=== PATIENT | female | born 1970 ===

== ENCOUNTER 2025-02-03 19:16 | Inpatient (IN) | payer OTHER ==
[~2025-02-03] VITALS: Wt 62.6 kg
[2025-02-03] MEDS ORDERED: LORazepam 2 MG/ML 1ML Injection IM ONE (20:45)
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
--- NOTE | 2025-02-04 04:23 | NUR ---
SHIFT SUMMARY: PLEASE SEE ADMISSION NOTE. ONCE PATIENT WENT TO BED, SHE WAS NOTED TO BE RESTING QUIETLY WITH EYES CLOSED AND RESPIRATIONS CONFIRMED FOR THE REMAINDER OF THE SHIFT. CONTINUING TO MONITOR FOR SAFETY WITH Q15 MINUTE CHECKS.
[2025-02-04] MEDS ORDERED: DiphenhydrAMINE HCl 50 MG/ML 1ML Vial IM PRN (07:55)
[2025-02-04] MEDS ORDERED: Haloperidol Lactate Inj. 5 MG/ML Injection IM PRN (07:55)
[2025-02-04] MEDS ORDERED: LORazepam 2 MG/ML 1ML Injection IM PRN (07:55)
[2025-02-04] MEDS ORDERED: Polyethylene Glycol 3350 17 gm PO PRN (08:00)
[2025-02-04] MEDS ORDERED: Ondansetron 4 MG SoluTab MM PRN (08:00)
[2025-02-04] MEDS ORDERED: Aluminum Hydroxide 320MG/5ML 473 ML PO PRN (08:05)
[2025-02-04] MEDS ORDERED: Multivitamins 1 Tab PO SCH (09:00)
--- NOTE | 2025-02-04 11:20 | NUR ---
PT HAS BEEN UP FOR BREAKFAST, RETURNED TO BED AND HAS APPEARED TO BE SLEEPING. SHE REQUESTED SOMETHING FOR ANXIETY WHILE SPEAKING WITH DR. SANDERS. PT WAS MEDICATED PER ORDERS. SHE STATES, "I'M ANXIOUS, THAT'S WHY I'M STAYING IN HERE". PT IS AGREEABLE TO WORKING ON HER ADMISSION WITH THIS RN AFTER LUNCH.
[2025-02-04] MEDS ORDERED: ALBU90OI INH (13:25)
[2025-02-04] MEDS ORDERED: Buspirone HCl15 MG PO (13:26)
[2025-02-04] MEDS ORDERED: CLON.5 PO (13:28)
[2025-02-04] MEDS ORDERED: Cyclobenzaprine5 MG PO (13:29)
[2025-02-04] MEDS ORDERED: DICLOFENAC SOD100 GM TOP (13:32)
[2025-02-04] MEDS ORDERED: DULO60 PO (13:32)
[2025-02-04] MEDS ORDERED: ESTRADIOL1 MG PO (13:33)
[2025-02-04] MEDS ORDERED: FERSU300 PO (13:34)
[2025-02-04] MEDS ORDERED: BREO ELLIPTA 11 EAC1 INH (13:35)
[2025-02-04] MEDS ORDERED: FURO40 PO (13:35)
[2025-02-04] MEDS ORDERED: GABA300 PO (13:36)
[2025-02-04] MEDS ORDERED: LEFL20 PO (13:37)
[2025-02-04] MEDS ORDERED: LORA10ER PO (13:38)
[2025-02-04] MEDS ORDERED: DRAMAMINE25 M1 PO (13:40)
[2025-02-04] MEDS ORDERED: METO25ER PO (13:42)
[2025-02-04] MEDS ORDERED: MIRTAZAPINE7.5 M1 PO (13:42)
[2025-02-04] MEDS ORDERED: MULVITA PO (13:43)
[2025-02-04] MEDS ORDERED: PANT40 PO (13:43)
[2025-02-04] MEDS ORDERED: K-TAB ER20 ME1 PO (13:53)
[2025-02-04] MEDS ORDERED: MINIPRESS5 MG PO (13:55)
[2025-02-04] MEDS ORDERED: Crestor40 MG PO (13:56)
[2025-02-04] MEDS ORDERED: Formoterol/Mometasone MDI 5/100 mcg 13 GM INH SCH (14:30)
[2025-02-04] MEDS ORDERED: Albuterol HFA200 ACT/6.7 GM INH INH PRN (14:30)
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
[2025-02-04 20:56] VITALS: BP 145/98
--- NOTE | 2025-02-05 04:10 | NUR ---
SHIFT SUMMARY AT BEGINNING OF SHIFT PATIENT IN BED SLEEPING, AWAKENS TO SLIGHT STIMULI. ANSWERING QUESTIONS APPROPRIATELY, AT TIMES DIFFICULT TO FOLLOW CONVERSATION. PATIENT VERBALIZED "I JUST WANT TO SLEEP" CONTINUES TO HAVE SI, WITH NO PLAN WHILE SHE IS HERE. DENIES HI. AUDITORY HALLUCINATIONS THAT COME AND GO EXPLAINED A "CRACKLING SOUND" DENIES VISUAL HALLUCINATIONS AT THIS TIME, BUT HAS HAD THEM IN THE PAST. AT APROX 2000 PATIENT ARRIVED TO NURSES DESK C/O TO MUCH NOISE OUTSIDE HER ROOM, DUE TO SEVERAL PATIENTS SITTING IN THE TAVERAS TALKING. PATIENT REMAINING IRRITABLE UNTIL ABLE TO TAKE HS MEDICATIONS AND GOING BACK TO BED. AT 224 PATIENT BACK TO NURSES DESK AND APOLOGIZING FOR BECOMING UPSET. CONTINUES TO C/O BACK PAIN IBUPROFEN AND TYLENOL PO GIVEN PER EMAR. PATIENT SLEEPING OFF AND ON T/O NIGHT RESP EVEN AND UNLABORED. CONTINUE TO MONITOR Q15MIN
[2025-02-05 07:29] LABS: BASOPHILS ABSOLUTE AUTO 0.03 K/mm3 (0.00-0.23); BASOPHILS PERCENT AUTO 1 % (0-2); EOSINOPHILS ABSOLUTE AUTO 0.14 K/mm3 (0.00-0.68); EOSINOPHILS PERCENT AUTO 4 % (0-6); Hematocrit 33.9 % (33.0-51.0); Hemoglobin 11.1 g/dL (11.5-16.0); IMMATURE GRAN ABSOLUTE AUTO 0.00 K/mm3 (0.00-0.10); IMMATURE GRAN PERCENT AUTO 0 % (0-1); LYMPHOCYTES ABSOLUTE AUTO 1.68 K/mm3 (0.84-5.20); LYMPHOCYTES PERCENT AUTO 43 % (21-46); MONOCYTES ABSOLUTE AUTO 0.29 K/mm3 (0.16-1.47); MONOCYTES PERCENT AUTO 7 % (4-13); Mean Corpuscular HGB Conc 32.7 g/dL (31.5-36.5); Mean Corpuscular Volume 95 fL (80-100); NEUTROPHILS ABSOLUTE AUTO 1.76 K/mm3 (1.96-9.15); NEUTROPHILS PERCENT AUTO 45 % (41-73); NRBC ABSOLUTE 0.00 K/mm3 (0.00-0.02); NRBC Auto 0.0 /100 WBC (0.0-0.2); Platelet Count 163 K/mm3 (150-400); RDW Coefficient Variation 12.5 % (11.7-14.2); RDW Standard Deviation 43.8 fL (35.1-46.3)
[2025-02-05 07:53] LABS: Alanine Aminotransfer (ALT/SGP 20 U/L (12-78); Albumin, Blood 3.1 g/dL (3.4-5.0); Albumin/Globulin Ratio 1.4 (0.8-1.8); Anion Gap 6 mmol/L (3-11); Aspartate Aminotrans (AST/SGOT 12 U/L (12-37); Bilirubin, Total 0.3 mg/dL (0.1-1.0); Blood Urea Nitrogen 19 mg/dL (8-24); CHOL/HDL RATIO 1.9; CO2, Blood 28 mmol/L (21-32); Calcium, Blood 7.7 mg/dL (8.5-10.1); Chloride, Blood 112 mmol/L (98-108); Cholesterol 111 mg/dL (50-200); Creatinine, Blood 0.67 mg/dL (0.40-1.00); Globulin, Blood 2.2 g/dL (2.2-4.0); Glucose, Blood 107 mg/dL (70-99); HDL Cholesterol 57 mg/dL (>39); LDL/HDL RATIO 0.6; Low Density Lipoprotein Chol 35 mg/dL (0-110); Potassium, Blood 3.7 mmol/L (3.5-5.5); Sodium, Blood 142 mmol/L (136-145); Total Protein, Blood 5.3 g/dL (6.4-8.2); Triglycerides 94 mg/dL (30-160); Very Low Density Lipoprot Chol 18 mg/dL (6-32)
[2025-02-05] MEDS ORDERED: DULoxetine HCL 60 MG Capsule DR PO SCH (09:00)
[2025-02-05 09:15] VITALS: BP 109/89
--- NOTE | 2025-02-05 17:13 | NUR ---
SHIFT SUMMARY: PT IS ALERT, ORIENTED AND COOPERATIVE WITH CARE. SHE DENIES SI, HI AND AVH. SHE ATTENDED MEALS AND WAS PRESENT ON THE UNIT IN THE AFTERNOON. SHE SPENT TIME ON THE PATIO, DAY ROOM AND SENSORY ROOM. PT C/O OF 8/10 PAIN THIS AM AND WAS MEDICATED WITH FLEXRIL AND IBURPOFEN PER EMAR. REPORTED IMPROVEMENT IN PAIN. SHE C/O 9/10 ANXIETY AND REQUESTED CLONAZEPAM, WAS MEDICATED PER EMAR AND REPORTED IMPROVEMENT. PT SHOWERED AND BEDDING WAS CHANGED AT HER REQUEST.
--- NOTE | 2025-02-05 17:31 | NUR ---
SHIFT SUMMARY: PT ALERT, ORIENTED AND COOPERATIVE WITH CARE. THEY DENIED SI, HI AND AVH. STATED THAT THEIR ANXIETY WAS IMPROVED SINCE YESTERDAY AND RATED IT AT 2/10. STATED, "I FEEL BETTER THAN YESTERDAY". THEY WERE ATTENDED MEALS AND WAS PRESENT ON THE UNIT. PT HAS EARRINGS X 2 IN BILATERAL EARS THAT REMAIN IN PLACE. THEY SPENT TIME IN THE DAY ROOM WATCHING TV AND IN THEIR ROOM READING.
[2025-02-05 20:54] VITALS: BP 156/95
[2025-02-05] MEDS ORDERED: Fluticasone 0.05% Nasal Spray SCH (21:00)
--- NOTE | 2025-02-06 04:32 | NUR ---
SHIFT SUMMARY: PATIENT WAS IN THE MILIEU AT THE BEGINNING OF THE SHIFT. SHE WAS TALKATIVE AND PLEASANT. SHE APOLOGIZED "IF I YELLED AT YOU BEFORE". SHE WAS ABLE TO MAKE HER NEEDS KNOWN. SHE ANSWERED SUPERVISING BROKER QUESTIONS IN A LOGICAL AND LINEAR MANNER. SHE HAD C/O PHYSICAL PAIN FROM HER RHEUMATOID ARTHRITIS AND AN ISSUE WITH HER BACK AND HER HIP. SHE DENIED SUICIDAL IDEATION, THOUGHTS OF SELF HARMING AND A/V/T HALLUCINATIONS. SHE STATED, "I TOOK A SHOWER TODAY AND I WASHED MY HAIR. IT WAS MY FIRST SHOWER IN A MONTH AND IT FELT SO GOOD." SHE HAD COMBED HAIR THAT SHE HAS "BEEN WORKING ON, THE MATS ARE ALMOST GONE". SHE SHARED THAT SHE DOES NOT HAVE CLOTHING OR SHOES FOR WHEN SHE IS DISCHARGED. SHE PARTICIPATED IN SNACK AND WRAP UP GROUP, AND WAS COMPLIANT WITH EVENING MEDICATIONS. SHE REQUESTED A FLEXERIL FOR MUSCLE PAIN AND A TRAZODONE FOR INSOMNIA. SHE IS STILL "A LITTLE CONFUSED" ABOUT HER FLEXERIL NOT BEING SCHEDULED, BUT STATED THAT SHE UNDERSTOOD AND WOULD ASK FOR IT WHEN NEEDED. SHE WAS FRIENDLY AND APPROPRIATE WITH HER PEERS, AND TALKED A LOT WITH RN ABOUT HER MEDICATIONS. SHE WENT TO BED AFTER SNACK, AND WAS NOTED TO BE RESTING QUIETLY WITH EYES CLOSED AND RESPIRATIONS CONFIRMED FOR THE REMAINDER OF THE SHIFT. CONTINUING TO MONITOR FOR SAFETY WITH Q15 MINUTE CHECKS.
[2025-02-06 09:20] VITALS: BP 118/77
--- NOTE | 2025-02-06 16:19 | NUR ---
WOUND NOTE: PT C/O PAIN TO HER POSTERIOR R KNEE WHERE SHE STATES SHE HAD A BUG BITE. NOTED CIRCULAR APROX 1.5 CM AREA OF ERYTHEMIA WITH APROX .25 CM OPENING IN THE CENTER. NO SWELLING, WARMTH OR DRAINAGE NOTED. CIRCLED WITH A SKIN MARKER AND DATED FOR MONITORING.
--- NOTE | 2025-02-06 16:58 | NUR ---
SHIFT SUMMARY: PT ALERT, ORIENTED AND COOPERATIVE WITH CARE. STATED THAT SHE WAS, "FEELING ANXIOUS" RATED AT 9/10 AND 8/10 PAIN IN HER BACK AND SHOULDER. SHE WAS MEDICATED PER EMAR AND MASS SCORE AND PAIN. SHE REPORTED GOOD RELIEF AFTER. SHE IS TALKATIVE WITH STAFF, DENIES SI, HI AND AVH. LATER IN THE DAY SHE REQUESTED CLONAZIPAM FOR INCREASED AND ANXEITY, IBURPOFEN AND FLEXRIL FOR PAIN. PT WAS MEDICATED PER EMAR. SHE SPENT TIME WALKING IN THE TAVERAS, RESTING ON HER BED AND IN THE DAY ROOM. SHE WAS ACTIVE IN THE MILIEU AND ATTENDED MEALS.
[2025-02-06 20:53] VITALS: BP 127/106
--- NOTE | 2025-02-06 21:51 | NUR ---
PATIENT WAS SEEN PLACING HERSELF GENTLY ON THE FLOOR OF HER ROOM AND CRAWLING AROUND LOOKING FOR SOMETHING. SHE WAS ASKED IF SHE NEEDED ANYTHING, AND STATED "I'M LOOKING FOR MY PEN, I CAN'T FIND IT". SHE GOT UP AND DUSTED HERSELF OFF, THEN STATED, "I DON'T KNOW WHAT HAPPENED. I MIGHT HAVE FALLEN." THIS ACTIVITY WAS WITNESSED BY RN AND SHE DID NOT FALL/HIT HEAD. (SHE DENIED HITTING HEAD BUT STATED SHE "DOESN'T REMEMBER" AND "FELL"). CONTINUING TO MONITOR FOR SAFETY WITH Q15 MINUTE CHECKS.
--- NOTE | 2025-02-07 04:31 | NUR ---
SHIFT SUMMARY: PATIENT PRESENTS FOCUSED ON HER MEDICAL NEEDS RATHER THAN MENTAL HEALTH ISSUES, EVIDENCED BY HER PERSEVERATION ON HER CHRONIC PAIN AND THE DIFFICULTY IN STEERING A CONVERSATION TOWARD BEHAVIORAL HEALTH ASSESSMENT, ALTHOUGH HER PHYSICAL CONDITION IS CERTAINLY NOTED WITH CONSIDERATION. SHE DOES C/O ANXIETY THAT "COMES AND GOES" AND IS HELPED "WITH MEDICINE". SHE STATES THAT THE COMBINATION OF "KLONOPIN, FLEXERIL AND IBUPROFEN HELPS WITH MY PAIN", NOTING THAT THE "KLONOPIN RELAXES ME". SHE WAS ABLE TO ANSWER ACCOUNTING MANAGER CONTROLLER QUESTIONS IN A LOGICAL AND LINEAR MANNER, ALTHOUGH WAS DISTRACTED FREQUENTLY BY WANTING TO ASCERTAIN THAT RN KNEW ABOUT HER CHRONIC PAIN DIFFICULTIES. SHE NOTED A "BUG BITE" ON THE BACK OF HER RIGHT KNEE, COVERED BY A BANDAGE AT THIS TIME. SHE DENIED SUICIDAL IDEATION, THOUGHTS OF SELF HARMING AND A/V/T HALLUCINATIONS. SHE PARTICIPATED IN SNACK AND WRAP UP GROUP, AND WAS COMPLIANT WITH EVENING MEDICATIONS. SHE REQUESTED FLEXERIL FOR 7/10 PAIN TO LOWER BACK, KLONOPIN FOR "ANXIETY" AND IBUPROFEN FOR 7/10 PAIN TO LOWER BACK, "IT WORKS BEST WITH THE FLEXERIL". SHE NOTED LATER THAT THE MEDICATIONS WERE EFFECTIVE. DURING A ROUND, RN NOTED THAT PATIENT WAS MOVING SELF GENTLY OFF OF HER BED AND ONTO THE FLOOR, THEN GETTING UP ON ALL FOURS AND CRAWLING AROUND THOUGH SEARCHING FOR SOMETHING. SHE ADMITTED TO "SEARCHING FOR MY PEN" BUT STATED THAT SHE DIDN'T REMEMBER GETTING TO THE GROUND AND "I MIGHT HAVE FALLEN". SHE DENIED HITTING HER HEAD. THIS WAS WITNESSED BY RN AND WAS NOT A FALL, AND NO LOC WAS NOTED. PATIENT WENT TO BED SHORTLY AFTER THIS INCIDENT, AND WAS NOTED TO BE RESTING QUIETLY WITH EYES CLOSED AND RESPIRATIONS CONFIRMED FOR THE REMAINDER OF THE SHIFT. CONTINUING TO MONITOR FOR SAFETY WITH Q15 MINUTE CHECKS.
[2025-02-07 09:10] VITALS: BP 98/70
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
[2025-02-07 20:35] VITALS: BP 130/81
--- NOTE | 2025-02-07 22:11 | NUR ---
ASSUMED PT CARE @1900. PT IS AA&O TO ALL. AT THE BEGINNING OF SHIFT MHA REPORTS SHE IS LAYING ON THE FLOOR IN ROOM CRYING. WHEN THIS RN WENT TO ASSESS SHE IS ATTEMPTING TO OPEN AND EXIT THROUGH THE BACK DOOR. WHEN ASKED SHE REPORTS THAT SHE IS HEARING BUZZING AND THAT SHE FEELS LIKE THERE ARE BEES BUZZING IN HER EARS AND SHE CAN'T STAND THE SOUND AND WANTS IT TO STOP SHE FEELS LIKE THEY ARE GOING TO GET HER. THIS RN ENCOURGED PT TO USE OTHER SENSES SUCH SIGHT TO SEE THERE ARE NO BEES. SHE IS ABLE TO CALM AND OFFERED HEADPHONES WITH GOOD RESULTS. PT LATER REPORTS THAT SHE FEELS LIKE MEDICATIONS HELP FOR A FEW HOURS WITH AH. SHE STATES THAT IN THE AFTERNOON BUZING AND NOISE RETURN AND "THINGS START TO GO DOWN HILL" SHE STATES SHE WANTS TO "FREAK OUT" BUT DOES NOT WANT TO SCARE OTHER PATIENTS. SHE REPORTS FRUSTRATION WITH DR. SOSA THIS MORNING. SHE STATES THAT HE DID NOT ASK ANY QUESTIONS AND INFORMED HER SHE WOULD BE DISCHARGED WED. SHE IS UPSET HE DECRESSED CLONAZEPAM WITHOUT ANY EXPLANATION AND STATED THAT SHE HAS BEEN ON IT FOR "10 YEARS" PT ENCOURAGED TO TALK TO MD IN THE MORNING ABOUT AH AND MEDICATION EFFECTIVENESS. SHE IS ENCOURAGED TO TELL HIM HER SYMPTOMS AND HOW LONG MEDICATIONS FEEL EFFECTIVE. SHE VERBALIZED UNDERSTANDING. SHE IS COMPLIANT WITH MEDICATIONS. SHE DENIES ANY ADVERSE EFFECTS. PRN FLEXERIL AND VOLTARIN GIVEN WITH GOOD EFFECT. PT EDUCATED ON INHALER AND SCHEDULE. SHE DENIES ANY FURTHER QUESTIONS AT THIS TIME. PT PARTICIPATED IN WRAP UP AND SNACK. SHE IS NOW CURRENTLY RESTING IN BED EYES CLOSED RR EVEN AND UNLABORED. WILL CONTINUE PLAN OF CARE.
--- NOTE | 2025-02-08 01:09 | NUR ---
Assumed care at 2345. Patient resting comfortably in bed. Will continue close monitoring every 15 mminutes for comfort and safety
--- NOTE | 2025-02-08 04:49 | NUR ---
Patient has been asleep since this RN assumed care. Please see mid shift summary from 2210 for a more detailed report of the patient's evening activities. Will continue close monitoring every 15 minutes for safety and comfort
[2025-02-08 09:14] VITALS: BP 108/73
--- NOTE | 2025-02-08 16:50 | NUR ---
SHIFT SUMMARY PT A/O X4; COOPERATIVE WITH CARE. SHE DENIES SI, HI, AVTH. SHE C/O PERIODIC ANXIETY AND BACK PAIN. TREATED PER EMR. HER AFFECT IS CONGRUENT TO HER STATED MOOD AND SHE PARTICIPATES IN MOST UNIT ACTIVITIES. SHE MISSED ONE GROUP DUE TO HER BACK PAIN BUT ATTENDED ALL OTHERS. SHE IS CURRENTLY IN THE GROUP ROOM, WATCHING TV WITH HER PEERS. SHE IS ROUNDED ON Q15 FOR SAFETY AND WELLNESS.
[2025-02-08 20:47] VITALS: BP 118/71
--- NOTE | 2025-02-09 05:22 | NUR ---
SHIFT NOTE PT DENIES SI/HI AND ALL HAULLUCINATIONS. SHE IS EUTHYMIC IN THE MILIEU. PT INTERACTED AND ENGAGED WITH STAFF AND PEERS IN AN POSITIVE MANNER. SHE WAS GIVEN MULTIPLE PRN MEDICATIONS WITH HER 2100 MED PASS. PLEASE SEE MAR. SHE C/O BACK AND HIP PAIN AT 6/10, AND INSOMNIA. AFTER THE MED PASS SHE STAYED IN HER ROOM ALL NIGHT, ON HER BED, APPEARED TO BE SLEEPING. NO ACUTE BEHAVIOR ISSUES THIS SHIFT.
[2025-02-09 09:27] VITALS: BP 96/60
--- NOTE | 2025-02-09 17:54 | NUR ---
SHIFT SUMMARY [age]AR OLD FEMALE PRESENTS REASONABLE GROOMED AND IS ABLE TO MAKE AND KEEP GOOD EYE CONTACT. PT SPEAKS WITH A REGULAR JENNIFER AND NORMAL VOLUME. WHEN ASKED, PT STATED SHE FELT GOOD, BUT WAS TIRED DUE TO HER ROOM BEING TO WARM TO SLEEP SOUNDLY. PT IS ALERT AND ORIENTED X4. SHE HAS BEEN COOPERATIVE WITH CARE AND HAS ATTENDED ALL GROUPS AND MEALS. PT DENIES SI, HI, AND AVTH AT THIS TIME. CLIENT APPEARS TO BE HOPEFUL AND OPITIMISTIC ABOUT UPCOMING DISCHARGE. PT HAS UTILIZED THE FOLLOWING PRN MEDICATIONS: FLEXERIL AT 0852, KLONOPIN AT 1041, AND NICORETTE AT 1657. PT CONTINUES TO BE MONITORED Q15 MINUTES FOR SAFETY.
[2025-02-09 19:35] VITALS: BP 104/72
--- NOTE | 2025-02-09 21:34 | NUR ---
DOCTOR YUMIKO NOTIFIED OF PATIENT C/O FREQUENT LOOSE STOOLS TODAY, ORDER OBTAINED FOR IMODIUM, PER PATIENT REQUEST.
--- NOTE | 2025-02-10 04:25 | NUR ---
SHIFT SUMMARY PATIENT RESTING IN ROOM AT BEGINNING OF SHIFT, AWAKENS EASILY WITH SLIGHT STIMULI. PATIENT C/O HAVING FREQUENT LOOSE TO LIQUID BM'S THIS AFTERNOON, REQUESTING IMODIUM. DENIES SI, HI OR AVH. VERBALIZED THAT SHE FEELS THAT SHE IS MORE AWARE OF THE NOISES THAT ARE AROUND HER THAT ARE "REALLY THERE" VERBALIZED THAT SHE FEELS SAFE HERE, BUT CONTINUES TO HAVE FEAR OF OUTSIDE ISSUES. PROVIDING STORY OF HAVING WASP PROBLEMS IN A STORAGE AREA AND THE DIFFICULTY SHE HAD TO GET THE ISSUE FIXED. PATIENT VERY PARTICULAR AND EASILY IRRITATED REGARDING HER MEDICATIONS AND CARE. TRAZODONE FOR SLEEP, MOTRIN AND FLEXERIL FOR CHRONIC PAIN, AND DICLOFENAC CREAM THAT PATIENT ABLE TO PUT TO HER LOWER BACK. PATIENT GOING TO BED AFTER TAKING HS MEDICATIONS. APPEARS TO BE SLEEPING WELL T/O NIGHT RESP EVEN AND UNLABORED. CONTINUE TO MONITOR Q15MIN
[2025-02-10 08:59] VITALS: BP 101/60
--- NOTE | 2025-02-10 09:37 | NUR ---
IMPORTANT DISCHARGE INFORMATION PATIENT TO BE DISCHARGED 02/11/25 AT 11AM. KJ BABIN IS COMMING TO PICK HER UP AND TAKE HER TO [place] [facility] TO [employer] HER CAR. ALL PARTIES VERBALIZE AN UNDESTANDING. KJ BABIN PHONE NUMBER FOLLOW UP APPOINTMENT WITH HER PCP ON 02/18/25 AT 9:40AM. MENTAL HEALTH REFERRAL TO SAME CLINIC REQUESTED. [facility] MENTAL [facility] OPEN DOOR WRAP AROUND [facility] [place] [facility]. PHARMACY: [facility] IN [place] FAX NUMBER RESOURCES:[facility] CRISIS SUPPORT, DHS, HOUSING/SHELTERS, FOOD AND CLOTHING PANTRIES
[2025-02-10] MEDS ORDERED: RISP.5 PO (12:54)
[2025-02-10] MEDS ORDERED: Nicoderm Cq1 EAC1 TOP (12:54)
[2025-02-10] MEDS ORDERED: TRAZ50 PO (12:55)
--- NOTE | 2025-02-10 17:26 | NUR ---
SHIFT SUMMARY: PT IS ALERT AND ORIENTED. SHE DENIED SI, HI AND AVH. STATES THAT SHE SLEPT, "OK" AND REPORTS THAT HER MOOD IS, "ALRIGHT, GOOD". PT BECAME AGGIATATED OFF AND ON THROUGH OUT THE DAY. DURING THE AFTERNOON GROUP PATIENT CAME OUT AND STARTED PACING THE HALLWAY, HOLDING HER PILLOW TO HER CHEST AND MUMBLING. WHEN ASKED SHE STATED, "I WANT TO LEAVE, I'M LEAVING RIGHT NOW". PT SPENT TIME IN THE SENSORY ROOM WITH [facility] AND CALMED. PT WAS PRESENT ON THE UNIT AND ENGAGED IN MILIEU. SHE ATTENDED GROUPS AND MEALS. SHE SHOWERED IN THE AFTERNOON. SPENT TIME IN THE DAY ROOM WATCHING TV AND TALKING WITH PEERS. 0750: PT C/O BACK AND HIP PAIN, REQUESTED IBUPROFEN AND FLEXERIL. SHE WAS MEDICATED PER EMAR. 1051: PT C/O INCREASED ANXIETY OF 8/10 AND REQUESTED "SOMETHING TO HELP". PT WAS MEDICATED WITH VISTARIL 50 PO PER EMAR FOR MASS SCORE OF 3. 1600: PT C/O INCREASED PAIN TO HER BACK AND HIP. SHE REQUESTED IBUPROFEN AND FLEXERIL. SHE WAS MEDICATED PER EMAR AND REPORTED RELIF FORM 8/10 PAIN TO 4/10.
[2025-02-10 20:10] VITALS: BP 105/56
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
[2025-02-11 09:08] VITALS: BP 106/66
--- NOTE | 2025-02-11 11:20 | NUR ---
DISCHARGE SUMMARY PRINTED D/C INFORMATION PACKET EXPLAINED TO PT. PT STATES UNDERSTANDING OF D/C INFORMATION. PRINTED RESOURCES PACKET FROM [employer] GIVEN TO PT. BELONGINGS GIVEN TO PT AND HE CHANGES SELF IN BATHROOM. MEDICATIONS FAXED TO [facility] IN [place], [place]. PT TRANSPORTED TO [facility] WHERE HER CAR IS CURRENTLY PARKED.
== END 2025-02-11 11:15 | disposition home or self-care (01) | DRG 885 ==
LOC: BHU 19:16
PROVIDERS: Student in an Organized Health Care Education/Training Program; ADMIT Psychiatry & Neurology Psychiatry
DX: F29 Unspecified psychosis not due to a substance or known physiological condition (principal); I25.10 Atherosclerotic heart disease of native coronary artery without angina pectoris; E11.9 Type 2 diabetes mellitus without complications; G89.29 Other chronic pain; F15.10 Other stimulant abuse, uncomplicated; J44.9 Chronic obstructive pulmonary disease, unspecified; K21.9 Gastro-esophageal reflux disease without esophagitis; E78.5 Hyperlipidemia, unspecified; F41.8 Other specified anxiety disorders; D50.9 Iron deficiency anemia, unspecified; I49.3 Ventricular premature depolarization; M79.7 Fibromyalgia; M48.061 Spinal stenosis, lumbar region without neurogenic claudication; M79.89 Other specified soft tissue disorders; M06.9 Rheumatoid arthritis, unspecified; Z87.891 Personal history of nicotine dependence; Z91.038 Other insect allergy status; Z91.018 Allergy to other foods; Z98.1 Arthrodesis status; Z99.89 Dependence on other enabling machines and devices; I25.2 Old myocardial infarction; Z86.73 Personal history of transient ischemic attack (TIA), and cerebral infarction without residual deficits; Z88.8 Allergy status to other drugs, medicaments and biological substances; Z79.899 Other long term (current) drug therapy; Z79.51 Long term (current) use of inhaled steroids; Z79.1 Long term (current) use of non-steroidal anti-inflammatories (NSAID)
CPT/HCPCS: 36415; 80053; 80061; 83036; 85025; A9270; J2060